=== PATIENT | male | born 1945 | race Caucasian/White ===

== ENCOUNTER → 2019-04-18 | Outpatient (CLI) | payer OTHER ==
[~2019-04-18] MED LIST: ASPI-496 PO; CALC1TAB91 PO; CHOL500015 PO; ENAL20TA PO; ERGO500017 PO; FENO145T32 PO; INSU100I13 SC; METF500T17 PO; OMEP20CA9 PO; PIOG45TA20 PO; SUCR1TAB PO; TIMO5DRO5 EACHEYE
== END | disposition home or self-care (01) ==
LOC: CFH 14:39
PROVIDERS: ATTEND Internal Medicine Cardiovascular Disease
DX: I08.8 Other rheumatic multiple valve diseases (principal); I10 Essential (primary) hypertension; E78.5 Hyperlipidemia, unspecified; E11.9 Type 2 diabetes mellitus without complications; Z87.891 Personal history of nicotine dependence
CPT/HCPCS: 93306